=== PATIENT | male | born 1970 | race Caucasian/White ===

== ENCOUNTER 2022-06-08 09:42 | Outpatient (REF) | payer OTHER, SELFPAY ==
--- NOTE | 2022-06-08 10:54 | MHC.AU.HA1 ---
Hearing Aid Evaluation Date of Visit: 06/08/22 Historical Information: Description of Hearing: Audiologic evaluation performed by [facility] 05/21/2022. Results indicate a severe to profound sensorineural hearing loss for the right ear with 44% speech understanding. Left ear findings show normal to borderline hearing thresholds at 250-2000 Hz with a mild to moderate sensorineural hearing loss at 6811-8668 Hz with 96% speech understanding. Previous testing by the ENT on 11/10/2021 revealed normal hearing thresholds 250-2000 Hz sloping to a mild sensorineural hearing loss at 0552-5682 Hz with 100% speech understanding for the left ear and a moderate sloping to profound sensorineural hearing loss for the right ear with 72% speech discrimination. Current personal amplification information, if applicable: NONE Summary: Medical clearance for amplification from Dr. Eugene Hernandez provided and in chart. According to the ENT report, Hayden has a history of mastoid procedure, dizziness, migraines with question of Meniere's Disease, as well as nasal/sinus problems. Given the significantly progressive right ear hearing loss with poor speech understanding and history of possible Meniere's and mastoid procedure, advise trial with a Bi-CROS system as this will reduce the potential problem with the poor right ear speech discrimination interfering with the good left ear speech understanding. A rechargeable Bi-CROS system is recommended for ease of use. Hearing Aid Prescription: Based on the individual?s shared listening needs, communication environments, dexterity, desire for connectivity, and personal preferences, the following prescription for amplification has been made: Right ear: Make, Model, Color: Phonak CROS P-R Silver [place] Battery Size: Rechargeable Car Oiler/Slim Tube: #2 M Type of Earmold/Dome/CShell/SlimTip: Dome Left ear: Make, Model, Color: Phonak [place] P 70-R Silver [place] Battery Size: Rechargeable Car Oiler/Slim Tube: #2 M Type of Earmold/Dome/CShell/SlimTip: Dome Accessories/Assistive Technology Recommended: None Plan of Care: Patient wishes to purchase hearing aids as prescribed Action Taken/Action Needed:Prior authorization to be requested, Hearing Instrument Fitting to be scheduled when materials arrive Primary Diagnosis: [id number].[id number] SNHL, Unilateral Right Ear, W/Restricted Contralateral Hearing Signature:Provider: Frieda Rosenthal, [facility]
== END 2022-06-08 09:43 | disposition home or self-care (01) ==
LOC: HO.HAP 09:42
PROVIDERS: Visit Provider Otolaryngology
DX: Z46.1 Encounter for fitting and adjustment of hearing aid (principal); H90.A21 Sensorineural hearing loss, unilateral, right ear, with restricted hearing on the contralateral side
CPT/HCPCS: 92591